=== PATIENT | male | born 1975 | race Caucasian/White ===

== ENCOUNTER 2017-10-31 15:15 | Emergency (ER) | payer OTHER ==
[~2017-10-31] VITALS: Ht 177.8 cm; Wt 106.0 kg
[2017-10-31 15:20] VITALS: BP 132/71; PULSE 84; RESP 16; TEMP 98.1; O2SAT 97
[2017-10-31] MEDS ORDERED: ALUMINUM/MAGNESIUM/SIMETH 30 ML CUP PO ONE (15:30)
[2017-10-31] MEDS ORDERED: LIDOCAINE VISCOUS 2% SOLN 15 ML UDC SWISH-SPIT ONE (15:30)
--- NOTE | 2017-10-31 15:30 | PD ---
HPI Chief Complaint: Oral / Dental Pain or Problem Time Seen by Provider: 15:29 Travel History International Travel<30 days: No Contact w/Intl Traveler<30days: No Traveled to known affect area: No History of Present Illness HPI 42-year-old male presents to emergency department complaining of right upper molar pain for 1 day. Patient states that he was eating and developed right upper tooth pain that radiated to his ear. Patient states that the pain is constant and moderate. Pain decreases with clove oil application, water pick, and cold water however increases within several minutes. Ibuprofen has decreased his pain. Denies unusual taste in his mouth. Patient denies fever, chills, chest pain, shortness of breath, or neck pain. Denies nausea, vomiting or diarrhea. Patient denies chronic medical problems or chronic medication use except for Suboxone. Patient states that he has been in rehabilitation for narcotic use for 3 years and is almost completely off of Suboxone. PFSH Past Medical History Diminished Hearing: No Tetanus Vaccination: < 5 Years Influenza Vaccination: No ?: Not Past Surgical History Abdominal Surgery: Yes (anal fisutula) Social History Alcohol Use: No Tobacco Use: No (quit 12 years ago) Substance Use: Yes (on Suboxone ) Allergies-Medications (Allergen,Severity, Reaction): Coded Allergies: No Known Allergies (Unverified , 10/31/17) Reported Meds & Prescriptions Reported Meds & Active Scripts Active Magic Mouthwash Pediatric/Adult Liq (Lidocaine/Diphenhydr/Alum/Mg/Simeth) 60 Ml Susp 5 Ml SWISH-SPIT ACHS Each 5mL contains: Diphenydramine 4.5mg, Viscous Lidocaine 2% 10mg, Maalox Advanced Regular Strength 2.7ml Review of Systems Except as stated in HPI: all other systems reviewed are Neg Physical Exam Narrative GENERAL: Well-nourished, well-developed patient. SKIN: Focused skin assessment warm/dry. HEAD: Normocephalic. EYES: No scleral icterus. No injection or drainage. Sinuses nontender to palpation. No obvious edema or erythema. THROAT: No pharyngeal injection, exudates, or tonsillar hypertrophy. Airway is patent. Dentition without excessive caries. Right upper molar- nontender to palpation. No area of fluctuance in the gingiva. Nonfriable gingiva. NECK: Supple, trachea midline. No JVD or lymphadenopathy. CARDIOVASCULAR: Regular rate and rhythm without murmurs, gallops, or rubs. RESPIRATORY: Breath sounds equal bilaterally. No accessory muscle use. MUSCULOSKELETAL: No cyanosis, or edema. BACK: Nontender without obvious deformity. No CVA tenderness. Data Data Last Documented VS Vital Signs Date Time Temp Pulse Resp B/P (MAP) Pulse Ox O2 Delivery O2 Flow Rate FiO2 10/31/17 15:20 98.1 84 16 132/71 (91) 97 Orders Orders Lidocaine 2% Viscous (Xylocaine 2% Visco (10/31/17 15:30) Al-Mag Hy-Si 40-40-4 Mg/Ml Liq (Mag-Al P (10/31/17 15:30) Bupivacaine Pf 0.5% Inj (Marcaine Pf 0.5 (10/31/17 16:15) Ed Discharge Order (10/31/17 16:44) MDM Medical Decision Making Medical Screen Exam Complete: Yes Emergency Medical Condition: Yes Differential Diagnosis Tooth fracture, abscess, gingivitis, dental infection Narrative Course 42-year-old male presents to emergency department complaining of right upper molar pain for 1 day. Patient states that he was eating and developed right upper tooth pain that radiated to his ear. Patient states that the pain is constant and moderate. Pain decreases with clove oil application, water pick, and cold water however increases within several minutes. Ibuprofen has decreased his pain. Denies unusual taste in his mouth. Patient denies fever, chills, chest pain, shortness of breath. Denies nausea, vomiting or diarrhea. Patient denies chronic medical problems or chronic medication use except for Suboxone. Patient states that he has been in rehabilitation for narcotic use for 3 years and is almost completely off of Suboxone- prefers not to have any form of narcotic medication. Vital signs stable. Physical exam findings consistent with a right upper molar tooth fracture or dental infection. Trial of lidocaine and Maalox oral rinse. Limited relief so patient opted for a dental block. Supraperiosteal block performed of the right upper molar and premolar with significant relief. Advised that this would provide only temporary relief. Patient will be discharged with Magic mouthwash. Advised patient to follow up with a dentist. Patient states he will comply. Patient appreciates the care he has received in the emergency department today. Procedures Procedure Narrative Supra-periosteal dental nerve block performed with bupivacaine.5% of the right upper molar and premolar region. Approximately 3 cc used. Diagnosis Primary Impression: Pain, dental Referrals: Dentist Additional Instructions: Follow up with your primary care physician within 2-3 days. If your symptoms persist or worsen, return to the emergency department. Follow-up with a dentist as soon as possible. Scripts Viuufqsxyicpbdv-Cfzhryacc-Ecg-Alum-Simeth Liq (Magic Mouthwash Pediatric/Adult Liq) 60 Ml Susp 5 ML SWISH-SPIT ACHS for Mouth sores, #60 ML 0 Refills Each 5mL contains: Diphenydramine 4.5mg, Viscous Lidocaine 2% 10mg, Maalox Advanced Regular Strength 2.7ml Prov: Irina Moses 10/31/17 Disposition: 01 DISCHARGE HOME Condition: Stable Irina Moses Oct 31, 2017 15:30
[2017-10-31] MEDS ORDERED: MAGICPED SWISH-SPIT (15:38)
[2017-10-31] MEDS ORDERED: BUPIVACAINE HCL PF 0.5% 30 ML VIAL NERV BLOCK ONE (16:15)
== END 2017-10-31 16:51 | disposition home or self-care (01) ==
LOC: PHEFT 15:15
DX: K08.89 Other specified disorders of teeth and supporting structures (principal); Z87.891 Personal history of nicotine dependence
CPT/HCPCS: 64400